=== PATIENT | male | born 2000 | race Caucasian/White ===

== ENCOUNTER 2025-09-18 17:22 | Emergency (ER) | payer SELFPAY ==
[~2025-09-18] VITALS: Ht 172.7 cm; Wt 50.0 kg
[2025-09-18 17:26] VITALS: BP 186/121; PULSE 120; RESP 18; O2SAT 100
[2025-09-18] MEDS ORDERED: NALO4SPR BOTHNSTRLS (17:31)
== END 2025-09-18 18:19 | disposition left against medical advice (07) ==
LOC: ER 17:22
DX: T50.901A Poisoning by unspecified drugs, medicaments and biological substances, accidental (unintentional), initial encounter (principal); R00.0 Tachycardia, unspecified; Z59.00 Homelessness unspecified; Y92.89 Other specified places as the place of occurrence of the external cause
CPT/HCPCS: 99283